=== PATIENT | female | born 1995 | race Caucasian/White ===

== ENCOUNTER 2019-03-26 16:06 | Observation (INO) | payer OTHER ==
[2019-03-26] MEDS ORDERED: NICOTINE 21MG/24HR PATCH TRANSDERM STA (17:40)
--- NOTE | 2019-03-26 21:11 | US ---
EXAMINATION TYPE: Transabdominal DATE OF EXAM: 03/26/2019 8:46 PM COMPARISON: NONE CLINICAL HISTORY: r/o retained products . EXAM PERFORMED: Transvaginal (TV) EXAM MEASUREMENTS: MATERNAL ANATOMY Uterus: 7.2 x 5.2 x 6.6 cm Right Ovary: 2.4 x 2.0 x 1.9 cm Left Ovary: 3.0 x 2.0 x 2.0 cm Post CDS / Adnexa: wnl Presence of free fluid: no Presence of corpus luteal cyst: no GESTATION / SURVEY IUP: No IUP seen at this time Endometrium measuring 1.6 cm possibly small amount of retained products still seen. IMPRESSION: There is some complex thickening of the endometrium that could relate to some retained products of co nception. No adnexal mass.
[2019-03-26 21:14] LABS: Basophils % (A) 1 %; Eosinophils # (A) 0.2 k/uL (0-0.7); Eosinophils % (A) 3 %; HCT 41.3 % (34.0-46.0); Lymphocytes # (A) 2.4 k/uL (1.0-4.8); Lymphocytes % (A) 37 %; MCH 31.8 pg (25.0-35.0); MCHC 33.8 g/dL (31.0-37.0); MCV 93.9 fL (80.0-100.0); Mean Platelet Volume 8.6; Monocytes # (A) 0.5 k/uL (0-1.0); Monocytes % (A) 7 %; Neutrophils # (A) 3.2 k/uL (1.3-7.7); Neutrophils % (A) 48 %; Platelet Count 298 k/uL (150-450); WBC 6.6 k/uL (3.8-10.6)
[2019-03-26 21:36] LABS: ALT 12 U/L (4-34); AST 23 U/L (14-36); African American GFR (CKD) >90 (>60 ml/min/1.73 sqM); Alkaline Phosphatase 69 U/L (38-126); Anion Gap 8 mmol/L; Blood Urea Nitrogen 7 mg/dL (7-17); Calcium 9.4 mg/dL (8.4-10.2); Carbon Dioxide 24 mmol/L (22-30); Chloride 106 mmol/L (98-107); Glucose 88 mg/dL (74-99); Non-African American GFR(CKD) >90 (>60 ml/min/1.73 sqM); Potassium 4.2 mmol/L (3.5-5.1); Sodium 138 mmol/L (137-145); Total Bilirubin 0.4 mg/dL (0.2-1.3); Total Protein 6.7 g/dL (6.3-8.2)
[2019-03-26] MEDS ORDERED: QUEtiapine 200 MG TAB PO STA (21:46)
[2019-03-26] MEDS ORDERED: NALOXONE 0.4 MG/ML 1 ML VIAL IV PRN (22:01)
--- NOTE | 2019-03-26 22:03 | ED ---
General Adult HPI - General Chief complaint: Abdominal Pain Stated complaint: OB Time Seen by Provider: 03/26/19 16:30 Source: patient, EMS, RN notes reviewed, old records reviewed Mode of arrival: EMS - History of Present Illness Initial comments: 23-year-old female patient presents to ED as transfer from the [facility] for possible retained products. Patient had an elective approximately 3 weeks ago for which she took an oral medication, patient port that she had 2 days of bleeding, passed large clots. Patient reports that bleeding continued for a few days became scant amount subsided. Patient reports that for the last 2 days she has had suprapubic abdominal cramping. Denies any discharge or dysuria. Denies any fevers or chills or systemic symptoms. Systemic: Pt denies fatigue, fever/chills, rash. Pt denies weakness, night sweats, weight loss. Neuro: Pt denies headache, visual disturbances, syncope or pre-syncope. HEENT: Pt denies ocular discharge or irritation, otalgia, rhinorrhea, pharyngitis or notable lymphadenopathy. Cardiopulmonary: Pt denies chest pain, SOB, heart palpitations, dyspnea on exertion. Abdominal/GI: Pt denies abdominal pain, n/v/d. : Pt denies dysuria, burning w/ urination, frequency/urgency. Denies new onset urinary or bowel incontinence. MSK: Pt denies myalgia, loss of strength or function in extremities. Neuro: Pt denies new onset weakness, paresthesias. - Related Data Home Medications Medication Instructions Recorded Confirmed QUEtiapine FUMARATE 200 mg PO HS 03/26/19 03/26/19 Allergies Allergy/AdvReac Type Severity Reaction Status Date / Time No Known Allergies Allergy Verified 03/26/19 17:25 Review of Systems ROS Statement: Those systems with pertinent positive or pertinent negative responses have been documented in the HPI. ROS Other: All systems not noted in ROS Statement are negative. Past Medical History Past Medical History: No Reported History History of Any Multi-Drug Resistant Organisms: None Reported Past Surgical History: Section Past Psychological History: Depression Smoking Status: Current every day smoker Past Alcohol Use History: None Reported Past Drug Use History: None Reported General Exam - General Exam Comments Initial Comments: Constitutional: NAD, AOX3, Pt has pleasant affect. HEENT: NC/AT, trachea midline, neck supple, no lymphadenopathy. Posterior pharynx non erythematous, without exudates. External ears appear normal, without discharge. Mucous membranes moist. Eyes PERRLA, EOM intact. There is no scleral icterus. No pallor noted. Cardiopulmonary: RRR, no murmurs, rubs or gallops, no JVD noted. Lungs CTAB in anterior and posterior everett. No peripheral edema. Abdominal exam: Abdomen soft and non-distended. Abdomen nontender to palpation in suprapubic region. Bowel sounds active in LLQ. No hepatosplenomegaly. No ecchymosis Neuro: CN II-XII grossly intact. No nuchal rigidity. No raccon eyes, no coulter sign, no hemotympanum. No cervical spinal tenderness. MSK: No posterior calf tenderness bilaterally, homans sign negative bilaterally. Posterior tibialis and radial pulse +2 bilaterally. Sensation intact in upper and lower extremities. Full active ROM in upper and lower extremities, 5/5 stregnth. Pelvic: Pelvic exam chaperoned by RN Gene cervix was closed, no discharge noted from cervix. Small amount of white discharge noted posterior vaginal vault. Very mild amount of cervical motion tenderness. Course Vital Signs 03/26/19 03/26/19 16:12 18:57 Temperature 97.8 F 97.8 F Pulse Rate 78 78 Respiratory 16 16 Rate Blood Pressure 117/75 120/87 O2 Sat by Pulse 98 98 Oximetry Medical Decision Making - Medical Decision Making 23-year-old female patient presents to ED as [facility] products. Pt is . Patient vital signs are stable, afebrile. Physical exam displayed small amount cervical motion tenderness on pelvic exam. Abdomen has mild tenderness in suprapubic region. Labs and ultrasound were reviewed from the [facility] which are overall unimpressive with exception of hCG Quant which is mildly elevated at 314.. Ultrasound was concerning for possible retained products. Case was discussed with Dr. Miller on-call beekeeper farmer and due to discrepancy among endometrial thickness and uterus size request repeat ultrasound. Repeat Was Obtained Which Was Again Suggestive of Retained Products. Dr. Miller Recommended Admitting Patient, for D&C in the Morning. Patient Was Agreeable to This. Patient Will Be Made Nothing by Mouth. No abx Recommended. Case Discussed with Dr. Delgado. - Lab Data Result diagrams: 03/26/19 20:20 03/26/19 20:20 Lab Results 03/26/19 03/26/19 03/26/19 Range/Units 20:20 20:20 20:20 WBC 6.6 (3.8-10.6) k/uL RBC 4.40 (3.80-5.40) m/uL Hgb 14.0 (11.4-16.0) gm/dL Hct 41.3 (34.0-46.0) % MCV 93.9 (80.0-100.0) fL MCH 31.8 (25.0-35.0) pg MCHC 33.8 (31.0-37.0) g/dL RDW 13.0 (11.5-15.5) % Plt Count 298 (150-450) k/uL Neutrophils % 48 % Lymphocytes % 37 % Monocytes % 7 % Eosinophils % 3 % Basophils % 1 % Neutrophils # 3.2 (1.3-7.7) k/uL Lymphocytes # 2.4 (1.0-4.8) k/uL Monocytes # 0.5 (0-1.0) k/uL Eosinophils # 0.2 (0-0.7) k/uL Basophils # 0.0 (0-0.2) k/uL Sodium 138 (137-145) mmol/L Potassium 4.2 (3.5-5.1) mmol/L Chloride 106 (98-107) mmol/L Carbon Dioxide 24 (22-30) mmol/L Anion Gap 8 mmol/L BUN 7 (7-17) mg/dL Creatinine 0.55 (0.52-1.04) mg/dL Est GFR (CKD-EPI)AfAm >90 (>60 ml/min/1.73 sqM) Est GFR (CKD-EPI)NonAf >90 (>60 ml/min/1.73 sqM) Glucose 88 (74-99) mg/dL Plasma Lactic Acid Nicolas 1.0 (0.7-2.0) mmol/L Calcium 9.4 (8.4-10.2) mg/dL Total Bilirubin 0.4 (0.2-1.3) mg/dL AST 23 (14-36) U/L ALT 12 (4-34) U/L Alkaline Phosphatase 69 (38-126) U/L Total Protein 6.7 (6.3-8.2) g/dL Albumin 4.0 (3.5-5.0) g/dL Blood Type Blood Type Recheck Bld Type Recheck Status 03/26/19 Range/Units 20:20 WBC (3.8-10.6) k/uL RBC (3.80-5.40) m/uL Hgb (11.4-16.0) gm/dL Hct (34.0-46.0) % MCV (80.0-100.0) fL MCH (25.0-35.0) pg MCHC (31.0-37.0) g/dL RDW (11.5-15.5) % Plt Count (150-450) k/uL Neutrophils % % Lymphocytes % % Monocytes % % Eosinophils % % Basophils % % Neutrophils # (1.3-7.7) k/uL Lymphocytes # (1.0-4.8) k/uL Monocytes # (0-1.0) k/uL Eosinophils # (0-0.7) k/uL Basophils # (0-0.2) k/uL Sodium (137-145) mmol/L Potassium (3.5-5.1) mmol/L Chloride (98-107) mmol/L Carbon Dioxide (22-30) mmol/L Anion Gap mmol/L BUN (7-17) mg/dL Creatinine (0.52-1.04) mg/dL Est GFR (CKD-EPI)AfAm (>60 ml/min/1.73 sqM) Est GFR (CKD-EPI)NonAf (>60 ml/min/1.73 sqM) Glucose (74-99) mg/dL Plasma Lactic Acid Nicolas (0.7-2.0) mmol/L Calcium (8.4-10.2) mg/dL Total Bilirubin (0.2-1.3) mg/dL AST (14-36) U/L ALT (4-34) U/L Alkaline Phosphatase (38-126) U/L Total Protein (6.3-8.2) g/dL Albumin (3.5-5.0) g/dL Blood Type O Positive Blood Type Recheck No Previous Record Bld Type Recheck Status ABR ONLY Disposition Clinical Impression: Retained products of conception Disposition: ADMITTED IP TO THIS [facility] Condition: Serious Is patient prescribed a controlled substance at d/c from ED?: No Referrals: None,Stated [Primary Care Provider] - 1-2 days
[2019-03-26] MEDS ORDERED: SODIUM CHLORIDE 0.9% 1,000 ML IV SCH (22:15)
[2019-03-26] MEDS ORDERED: ACETAMINOPHEN TAB 325 MG TAB PO PRN (22:41)
[2019-03-27 03:31] LABS: Appearance,Urine Cloudy (Clear); Bacteria,Urine Occasional /hpf; Bilirubin,Urine Negative (Negative); Blood,Urine Large (Negative); Color,Urine Yellow; Glucose,Urine (UA) Negative (Negative); Ketones,Urine Negative (Negative); Leukocyte Esterase,Urine Moderate (Negative); Mucus,Urine Many /hpf; Nitrite,Urine Negative (Negative); PH, Urine 5.5 (5.0-8.0); Protein,Urine Trace (Negative); RBC,Urine 3 /hpf (0-5); Specific Gravity,Urine 1.015 (1.001-1.035); Squamous Epithelial Cell,Urine 14 /hpf (0-4); Urobilinogen,Urine <2.0 mg/dL (<2.0); WBC,Urine 17 /hpf (0-5)
--- NOTE | 2019-03-27 07:28 | P.HPOB ---
History of Present Illness H&P Date: 03/27/19 This is a 23-year-old white female 4 para 3003 last menstrual period 4 months ago who presented to the emergency room last night with abdominal pain. She is status post termination of at the [facility] 3 weeks ago. She states the pain began at that time, but worsened over the past 12 hours. She denies vaginal bleeding, denies vaginal discharge, denies odor. Past medical history is significant for addiction, currently at [facility]. Past surgical history section 2018. Past obstetric history vaginal deliveries 2, 1 year ago. All children healthy. Current medications Seroquel daily, Zoloft daily, BuSpar daily. ALLERGIES Lamictal to which reports a rash. Family history is noncontributory. Social history patient has been a tobacco smoker one pack per day for 6 years, she has a history of cocaine use and states she last used a year ago. She is single, and lives in [place]. On exam she is 5 foot 7 inches, 150 pounds. Blood type is said to be O+. Chest is clear in all everett. Extremities reveal no edema. Cardiac exam reveals regular rate and rhythm without murmur click or rub. Abdomen is soft, minimally tender suprapubically. Pelvic exam is deferred to the operating room. Pelvic examination in the emergency room is as documented. There is no rebound or guarding. Ultrasound suggests an endometrial thickness of 1.6 cm, no free fluid, no adnexal masses. Impression: Retained products of conception, status post voluntary termination of 3 weeks ago. History of cocaine use, currently a resident at [facility]. Plan: We will proceed with suction dilatation and curettage of the uterus. All risks, benefits and alternatives of the surgery have been discussed. I believe the patient understands the above with no question or reservation. Review of Systems Constitutional: Reports as per HPI Past Medical History Past Medical History: No Reported History History of Any Multi-Drug Resistant Organisms: None Reported Past Surgical History: Section Additional Past Surgical History / Comment(s): 2018 Past Anesthesia/Blood Transfusion Reactions: No Reported Reaction Past Psychological History: Anxiety, Bipolar, Depression Smoking Status: Current every day smoker Past Alcohol Use History: None Reported Past Drug Use History: None Reported - Past Family History Mother Family Medical History: Hypertension Medications and Allergies Home Medications Medication Instructions Recorded Confirmed Type Acetaminophen Tab [Tylenol Tab] 650 mg PO Q4H PRN 03/26/19 03/26/19 History Acyclovir 400 mg PO TID@0600,1530,2200 03/26/19 03/26/19 History Calcium/Magnesium(Unknown Dose) 2 tab PO TID PRN 03/26/19 03/26/19 History Chlorpheniramine Maleate 4 mg PO Q4H PRN 03/26/19 03/26/19 History [Chlor-Trimeton] Ibuprofen [Motrin] 600 mg PO Q6H PRN 03/26/19 03/26/19 History Multivitamins, Thera [Multivitamin 1 tab PO DAILY 03/26/19 03/26/19 History (formulary)] Mylanta 30 ml PO Q4H PRN 03/26/19 03/26/19 History Ondansetron HCl [Zofran] 4 mg PO Q8H PRN 03/26/19 03/26/19 History QUEtiapine FUMARATE 200 mg PO HS@2200 03/26/19 03/26/19 History Sertraline [Zoloft] 50 mg PO DAILY 03/26/19 03/26/19 History Thiamine [Vitamin B-1] 100 mg PO DAILY 03/26/19 03/26/19 History busPIRone HCl [Buspar] 10 mg PO TID PRN 03/26/19 03/26/19 History traZODone HCL 50 - 150 mg PO HS PRN 03/26/19 03/26/19 History Allergies Allergy/AdvReac Type Severity Reaction Status Date / Time lamotrigine [From Lamictal] Allergy Rash/Hives Verified 03/26/19 23:12 Exam Vital Signs Temp Pulse Pulse Resp BP BP Pulse Ox 03/26/19 23:02 98.2 F 100 14 139/83 94 L 03/26/19 22:39 97 F L 87 18 136/87 97 03/26/19 22:20 97 F L 87 18 136/87 97 03/26/19 18:57 97.8 F 78 16 120/87 98 03/26/19 16:12 97.8 F 78 16 117/75 98 Intake and Output 03/26/19 03/27/19 03/27/19 22:59 06:59 14:59 Other: # Voids 1 Weight 68.039 kg 68.039 kg Results Result Diagrams: 03/26/19 20:20 03/26/19 20:20 Abnormal Lab Results - Last 24 Hours (Table) 03/27/19 Range/Units 03:20 Urine Appearance Cloudy H (Clear) Urine Protein Trace H (Negative) Urine Blood Large H (Negative) Ur Leukocyte Esterase Moderate H (Negative) Urine WBC 17 H (0-5) /hpf Ur Squamous Epith Cells 14 H (0-4) /hpf Urine Bacteria Occasional H (None) /hpf Urine Mucus Many H (None) /hpf Microbiology - Last 24 Hours (Table) 03/26/19 18:30 Genital Culture - Preliminary Cervix Assessment and Plan Assessment: Retained products of conception, 3 weeks status post voluntary termination of . Patient wishing D&C. Plan: For suction D&C in the operating room this morning. Patient has been nothing by mouth since last night, potato chips eaten at approximately 8 PM.
[2019-03-27] MEDS ORDERED: IV FLUID CONTINUATION 1,000 ML IV ONE (07:57)
[2019-03-27] MEDS ORDERED: KETOROLAC 30 MG/ML 1 ML VIAL ONE (08:24)
[2019-03-27] MEDS ORDERED: fentaNYL (PF) 50 MCG/ML 2 ML AMP ONE (08:24)
[2019-03-27] MEDS ORDERED: MIDAZOLAM 2 MG/2 ML VIAL ONE (08:24)
[2019-03-27] MEDS ORDERED: PROPOFOL 10 MG/ML 20 ML VIAL IV ONE (08:24)
[2019-03-27] MEDS ORDERED: LIDOCAINE 1% INJ 10MG/ML (20 ML MDV) ONE (08:24)
[2019-03-27] MEDS ORDERED: ONDANSETRON 4 MG/2 ML VIAL IVP ONE (08:25)
[2019-03-27] MEDS ORDERED: DEXAMETHASONE SOD PHOSPHATE 10 MG/ML 1 ML VIAL IV ONE (08:26)
[2019-03-27] MEDS ORDERED: LACTATED RINGERS 1,000 ML IV ONE (08:47)
--- NOTE | 2019-03-27 08:56 | P.OP ---
Date of Procedure: 03/27/19 Preoperative Diagnosis: Retained products of conception Postoperative Diagnosis: Same Procedure(s) Performed: Suction dilatation and curettage of the uterine cavity Anesthesia: RAHEL Surgeon: Aisha Miller Estimated Blood Loss (ml): 50 IV fluids (ml): 300 Urine output (ml): 500 Pathology: other (Intrauterine contents) Condition: stable Disposition: PACU Description of Procedure: Patient is brought to the operating suite where general anesthetic is administered without difficulty. She's placed in the dorsal lithotomy position. The appropriate timeout is performed to assure proper patient and procedural identification. Blood type is O+. Examination under anesthesia reveals an anteverted uterus that is approximately 8-10 weeks size, negative adnexa bilaterally. The bladder is drained for proximal height 500 mL of clear yellow urine. Cervix, vagina, perineal bodies are all prepped and draped in the usual sterile fashion. Weighted speculum was placed into the vagina. Anterior lip of the cervix is grasped with a double-tooth tenaculum. Uterus sounds to a depth of 11-1/2 cm in the anteverted position. The cervix was gently and systematically dilated using Hanks dilators with little resistance. A #8 curved sterile suction curette is placed to the dome of the fundus, and under appropriate suction pressures the uterine cavity is thoroughly curettaged for a moderate amount of tissue. A sharp curette is then used to assure that no retained products of conception remaining. The suction curet is once again placed and no additional tissue is procured. Cervix is noted to be clean and dry. Uterus is massaged and is firm. There is only scant bleeding noted at the end of the procedure. All sponge needle and instrument counts are correct. Patient is brought back to the recovery room in good condition with stable vital signs including a blood pressure of 92/51, pulse 91. Please note that 2 g of Ancef are given prior to the procedure in the operating room. Stadol is also given. Patient will follow-up with her primary care physician in the [place] area in 2 weeks. She is reminded no intercourse, tampons or douching until that time. I have strongly encouraged her to consider some type of long-acting contraception at this time.
--- NOTE | 2019-03-27 08:58 | P.DS ---
Providers Date of admission: 03/26/19 22:32 Expected date of discharge: 03/27/19 Attending physician: Aisha Miller Primary care physician: Stated None Hospital Course: This 23-year-old female 4 para 3003 is 3 weeks status post voluntary termination of in a different center. She presented to the emergency room last night with continued abdominal pain and bleeding. Sonogram revealed increased endometrial thickness consistent with retained products of conception. Blood type is O+. Patient was admitted 23 hour stay as she had not been nothing by mouth, and consented to suction dilatation and curettage of the uterine cavity. Please see dictated history and physical for details. Patient underwent a suction D&C under my care with a moderate amount of tissue sent to pathology. She did well intraoperatively with an estimated blood loss of 50 mL's. There were no intraoperative complications or issues, please see dictated operative note for details. Patient is being discharged home with instructions to follow-up with her own primary care physician in the [place] area in 2 weeks. I have strongly reminded her no intercourse, tampons or douching. In addition, I have counseled her that some type of long-acting contraception should be utilized to prevent unwanted . She states she will follow-up as appropriate. Patient Condition at Discharge: Good Plan - Discharge Summary Discharge Rx Participant: No New Discharge Prescriptions: No Action QUEtiapine FUMARATE 200 mg PO HS@2200 traZODone HCL 50 - 150 mg PO HS PRN PRN Reason: Insomnia Ondansetron HCl [Zofran] 4 mg PO Q8H PRN PRN Reason: Nausea Ibuprofen [Motrin] 600 mg PO Q6H PRN PRN Reason: Fever And/ Or Pain Chlorpheniramine Maleate [Chlor-Trimeton] 4 mg PO Q4H PRN PRN Reason: ANXIETY/ALLERGY SYMPTOMS Calcium/Magnesium(Unknown Dose) 2 tab PO TID PRN PRN Reason: Muscle Spasm Acetaminophen Tab [Tylenol Tab] 650 mg PO Q4H PRN PRN Reason: Fever And/ Or Pain busPIRone HCl [Buspar] 10 mg PO TID PRN PRN Reason: Anxiety Acyclovir 400 mg PO TID@0600,1530,2200 Sertraline [Zoloft] 50 mg PO DAILY Thiamine [Vitamin B-1] 100 mg PO DAILY Multivitamins, Thera [Multivitamin (formulary)] 1 tab PO DAILY Mylanta 30 ml PO Q4H PRN PRN Reason: Indigestion Discharge Medication List Acetaminophen Tab [Tylenol Tab] 650 mg PO Q4H PRN 03/26/19 [History] Acyclovir 400 mg PO TID@0600,1530,2200 03/26/19 [History] Calcium/Magnesium(Unknown Dose) 2 tab PO TID PRN 03/26/19 [History] Chlorpheniramine Maleate [Chlor-Trimeton] 4 mg PO Q4H PRN 03/26/19 [History] Ibuprofen [Motrin] 600 mg PO Q6H PRN 03/26/19 [History] Multivitamins, Thera [Multivitamin (formulary)] 1 tab PO DAILY 03/26/19 [History] Mylanta 30 ml PO Q4H PRN 03/26/19 [History] Ondansetron HCl [Zofran] 4 mg PO Q8H PRN 03/26/19 [History] QUEtiapine FUMARATE 200 mg PO HS@2200 03/26/19 [History] Sertraline [Zoloft] 50 mg PO DAILY 03/26/19 [History] Thiamine [Vitamin B-1] 100 mg PO DAILY 03/26/19 [History] busPIRone HCl [Buspar] 10 mg PO TID PRN 03/26/19 [History] traZODone HCL 50 - 150 mg PO HS PRN 03/26/19 [History] Follow up Appointment(s)/Referral(s): None,Stated [Primary Care Provider] - 2 Weeks Discharge Disposition: HOME SELF-CARE
[2019-03-27] MEDS ORDERED: HYDROmorphone 1 MG/ML 1 ML SYRINGE IVP ONE ×2 (09:25→09:30)
[2019-03-27] MEDS ORDERED: HYDROcodone/APAP 7.5-325MG 1 EACH TAB PO ONE (09:43)
[2019-03-27] MEDS ORDERED: IBUPROFEN 600 MG TAB PO PRN (10:00)
[2019-03-27 12:55] VITALS: BP 124/78; PULSE 80; RESP 17; TEMP 98
== END 2019-03-27 12:45 | disposition other institution (70) ==
LOC: EC 16:06 → 4FBP 22:32
PROVIDERS: ADMIT Obstetrics & Gynecology; ATTEND Obstetrics & Gynecology
DX: O07.4 Failed attempted termination of pregnancy without complication (principal); F17.210 Nicotine dependence, cigarettes, uncomplicated; F41.9 Anxiety disorder, unspecified; F31.9 Bipolar disorder, unspecified; K08.409 Partial loss of teeth, unspecified cause, unspecified class; Z79.899 Other long term (current) drug therapy; Z98.890 Other specified postprocedural states; Z88.8 Allergy status to other drugs, medicaments and biological substances; Z82.49 Family history of ischemic heart disease and other diseases of the circulatory system
CPT/HCPCS: 59812; 99285; 36415; 86900; 86901; 88305; 80053; 83605; 85025; 81001; 87070; 87086; 76801; 76817; G0378 ×2; S4990; J2250; J1100; J2405; J2001; J3010; J1885; J1170; J2704